=== PATIENT | female | born 2000 | race Hispanic/Latino ===

== ENCOUNTER 2022-02-04 03:31 | Emergency (ER) | payer SELFPAY ==
[2022-02-04 05:33] LABS: Absolute Lymphocytes (CBC) 2.4 K/uL (0.7-4.9); Hematocrit 36.4 % (36.0-45.0); Lymphocytes % 30.9 % (15.3-44.8); MPV 9.2 fL (7.6-11.3); RBC Red Blood Cell Count 4.51 M/uL (3.86-4.86)
[2022-02-04 05:49] LABS: Potassium 3.5 mmol/L (3.5-5.1); Troponin High Sensitivity 7.1 pg/mL (<58.9)
[2022-02-04 06:12] LABS: Urine Blood 3+ (Negative); Urine Glucose Negative (Negative); Urine Protein Negative (Negative); Urine pH 5.5 (5.0-7.0)
--- NOTE | 2022-02-04 08:10 | RAD REPORT ---
EXAM DESCRIPTION: CT - Head Brain Wo Cont - 02/04/2022 7:48 am CLINICAL HISTORY: Syncope COMPARISON: None. TECHNIQUE: Computed axial tomography of the head was obtained. IV contrast was not requested. All CT scans are performed using dose optimization technique as appropriate and may include automated exposure control or mA/KV adjustment according to patient size. FINDINGS: An intracranial bleed is not seen . The ventricles are normal in caliber. No significant hypodense areas within the brain visualized No extra-axial fluid collection is noted. Fluid within the sinuses/ mastoids is not seen. IMPRESSION: No acute intracranial abnormality is seen. If patient's symptoms persist MRI of the bra in would be recommended.
--- NOTE | 2022-02-04 08:16 | RAD REPORT ---
EXAM DESCRIPTION: [place] Single View02/04/2022 6:28 am CLINICAL HISTORY: Syncope COMPARISON: none FINDINGS: The lungs appear clear of acute infiltrate. The heart is normal size IMPRESSION: No acute abnormalities displayed
--- NOTE | 2022-02-04 09:42 | RAD REPORT ---
EXAM DESCRIPTION: CT - Chest For Pe Angio - 02/04/2022 9:36 am CLINICAL HISTORY: Syncope COMPARISON: None. TECHNIQUE: Dynamically enhanced axial 3 mm thick images of the chest were obtained during administra tion of <100> mL Isovue 370 IV contrast. Coronal and oblique reconstruction images were generated and reviewed. Exam utilizes a protocol for optimal evaluation of pulmonary arterial tree. Maximum intensity projections 3D imaging was utilized All CT scans are performed using dose optimization technique as appropriate and may include automated exposure control or mA/KV adjustment according to patient size. FINDINGS: A pulmonary embolus is not seen. A thoracic aortic aneurysm is not noted. A pleural effusion is not seen. A pericardial effusion is not seen. A lung consolidation is not present. IMPRESSION: Negative for a pulmonary embolism.
--- NOTE | 2022-02-04 09:55 | EDPHYS ---
Physician Documentation [facility] Name: Salma Hermosillo Age: 21 yrs Sex: Female : 2000 Arrival Date: 02/04/2022 Time: 03:49 Bed 15 Private MD: ED Physician Artem Phipps HPI: 02/04 04:25 This 21 yrs old Female presents to ER via EMS with complaints of Dizziness. mh7 04:25 The patient presents with dizziness, lightheadedness. Onset: The symptoms/episode mh7 began/occurred today. Context: occurred at home, occurred while the patient was sitting. Modifying factors: The symptoms are alleviated by nothing, the symptoms are aggravated by standing up. Associated signs and symptoms: Pertinent positives: near-syncope, Pertinent negatives: abdominal pain, agitation, ataxia, blurred vision, chest pain, combativeness, confusion, diaphoresis, focal weakness, head injury, headache, nausea, numbness, palpitations, , seizure, shortness of breath, tingling, vomiting. Severity of symptoms: At their worst the symptoms were moderate today, in the emergency department the symptoms have improved markedly. Patient's baseline: Neuro: alert and fully oriented, Motor: no deficits, Ambulation: walks without assistance, Speech: normal. States that she felt dizziness and lightheaded then laid down on her bed and passed out. Denies any other symptoms. She reports having an elective 5 days ago, but has not had any complications. No vaginal bleeding, fever, cough, abdominal pain, nausea, vomiting. She also reports a h/o anemia and was on iron but stopped taking it.. 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 - Social history:: Smoking status: Patient denies any tobacco usage or history of. ROS: 04:25 Constitutional: Negative for fever, chills, and weight loss, Eyes: Negative for injury, mh7 pain, redness, and discharge, ENT: Negative for injury, pain, and discharge, Neck: Negative for injury, pain, and swelling, Cardiovascular: Negative for chest pain, palpitations, and edema, Respiratory: Negative for shortness of breath, cough, wheezing, and pleuritic chest pain, Abdomen/GI: Negative for abdominal pain, nausea, vomiting, diarrhea, and constipation, Back: Negative for injury and pain, : Negative for injury, bleeding, discharge, and swelling, MS/Extremity: Negative for injury and deformity, Skin: Negative for injury, rash, and discoloration, Neuro: Negative for headache, weakness, numbness, tingling, and seizure, Psych: Negative for depression, anxiety, suicide ideation, homicidal ideation, and hallucinations, Allergy/Immunology: Negative for hives, rash, and allergies, Endocrine: Negative for neck swelling, polydipsia, polyuria, polyphagia, and marked weight changes, Hematologic/Lymphatic: Negative for swollen nodes, abnormal bleeding, and unusual bruising. Exam: 04:25 Constitutional: This is a well developed, well nourished patient who is awake, alert, mh7 and in no acute distress. Head/Face: Normocephalic, atraumatic. Eyes: Pupils equal round and reactive to light, extra-ocular motions intact. Lids and lashes normal. Conjunctiva and sclera are non-icteric and not injected. Cornea within normal limits. Periorbital areas with no swelling, redness, or edema. Neck: Trachea midline, no thyromegaly or masses palpated, and no cervical lymphadenopathy. Supple, full range of motion without nuchal rigidity, or vertebral point tenderness. No Meningismus. Chest/axilla: Normal chest wall appearance and motion. Nontender with no deformity. No lesions are appreciated. Cardiovascular: Regular rate and rhythm with a normal S1 and S2. No gallops, murmurs, or rubs. Normal PMI, no JVD. No pulse deficits. Respiratory: Lungs have equal breath sounds bilaterally, clear to auscultation and percussion. No rales, rhonchi or wheezes noted. No increased work of breathing, no retractions or nasal flaring. Abdomen/GI: Soft, non-tender, with normal bowel sounds. No distension or tympany. No guarding or rebound. No evidence of tenderness throughout. Back: No spinal tenderness. No costovertebral tenderness. Full range of motion. Skin: Warm, dry with normal turgor. Normal color with no rashes, no lesions, and no evidence of cellulitis. MS/ Extremity: Pulses equal, no cyanosis. Neurovascular intact. Full, normal range of motion. Neuro: Awake and alert, GCS 15, oriented to person, place, time, and situation. Cranial nerves II-XII grossly intact. Motor strength 5/5 in all extremities. Sensory grossly intact. Cerebellar exam normal. Normal gait. Psych: Awake, alert, with orientation to person, place and time. Behavior, mood, and affect are within normal limits. Vital Signs: 03:49 BP 113 / 71; Pulse 76; Resp 18; Temp 98.1(O); Pulse Ox 100% on R/A; Weight 79.38 kg ll3 (R); Pain 0/10; 05:00 BP 108 / 66; Pulse 67; Resp 16; Pulse Ox 100% on R/A; ll3 06:52 BP 119 / 86; Pulse 66; Resp 17; Pulse Ox 100% on R/A; ll3 08:00 BP 116 / 66 Supine; Pulse 69; Resp 15; ss 08:04 BP 109 / 65 Sitting; Pulse 68; ss 08:06 BP 111 / 73; Pulse 90; Resp 15; ss 10:29 BP 101 / 63; Pulse 60; Resp 15; Pulse Ox 100% on R/A; Pain 0/10; ll1 MDM: 07:25 Transition of care: After a detail discussion of the patient's case, care is mh7 transferred to Artem Phipps MD. 08:29 ED course: Signed out to me by Dr. Hunt, plan was to wait on ct head and d-dimer. He rn thought if negative studies could go home, d-dimer came back elevated, ordered ct PE protocol given recent .. 08:30 Patient medically screened. rn 09:52 Differential diagnosis: generalized weakness, hyperventilation, hypovolemia, idiopathic rn dizziness, near-syncope, syncope. Data reviewed: vital signs, nurses notes, lab test result(s), EKG, radiologic studies, CT scan, plain films, and as a result, I will discharge patient. Counseling: I had a detailed discussion with the patient and/or guardian regarding: the historical points, exam findings, and any diagnostic results supporting the discharge/admit diagnosis, lab results, radiology results, the need for outpatient follow up, to return to the emergency department if symptoms worsen or persist or if there are any questions or concerns that arise at home. Response to treatment: the patient's symptoms have markedly improved after treatment, and as a result, I will discharge patient. Special discussion: I discussed with the patient/guardian in detail that at this point there is no indication for admission to the hospital. It is understood, however, that if the symptoms persist or worsen the patient needs to return immediately for re-evaluation. ED course: Pt feels much better, CT PE and CT head neg for acute findings. Will dc home with return precautions and f/u per Dr. Hunt' original plan.. 02/04 04:04 Order name: Abo/rh Typing; Complete Time: 06:35 [facility] 02/04 04:04 Order name: Basic Metabolic Panel; Complete Time: 06:35 [facility] 02/04 04:04 Order name: CBC with Diff; Complete Time: 05:42 [facility] 02/04 04:54 Order name: D-Dimer; Complete Time: 08:28 [facility] 02/04 04:56 Order name: COVID-19 SARS RT PCR (Document "Date of Onset" if Symptomatic); Complete Time: 06:35 02/04 04:04 Order name: IV Saline Lock; Complete Time: 05:32 02/04 04:54 Order name: EKG; Complete Time: 04:54 02/04 05:29 Order name: Troponin High Sensitivity; Complete Time: 06:35 [facility] 02/04 05:36 Order name: Chest Single View XRAY; Complete Time: 08:28 [facility] 02/04 06:12 Order name: Urine Dipstick-Ancillary; Complete Time: 06:35 [facility] 02/04 07:11 Order name: CT Head Brain wo Cont; Complete Time: 08:28 02/04 08:29 Order name: CT Chest For PE Angio; Complete Time: 09:52 rn 02/04 04:04 Order name: Labs collected and sent; Complete Time: 05:32 02/04 04:04 Order name: NPO; Complete Time: 04:23 7 02/04 04:04 Order name: Urine Dipstick-Ancillary (obtain specimen); Complete Time: 06:13 02/04 04:54 Order name: EKG - Nurse/Tech; Complete Time: 06:29 mh7 02/04 05:36 Order name: Orthostatics; Complete Time: 08:30 mh7 Administered Medications: No medications were administered Disposition Summary: 02/04/22 09:54 Discharge Ordered Location: Home rn Problem: new rn Symptoms: have improved rn Condition: Stable rn Diagnosis - Syncope rn Followup: rn - With: Private Physician - When: As needed - Reason: Recheck today's complaints, Re-evaluation by your physician Discharge Instructions: - Discharge Summary Sheet rn - Syncope rn Forms: - Medication Reconciliation Form rn - Thank You Letter rn - Antibiotic rn chronic - Prescription Opioid Use rn Signatures: Dispatcher [employer] EDMS Artem Phipps MD MD rn Holmes, Maurice, MD MD [facility] Brittany Kenny RN RN ll3 Corrections: (The following items were deleted from the chart) 05:28 04:54 Troponin High Sensitivity+C.LAB.BRZ ordered. EDMS EDMS
--- NOTE | 2022-02-04 09:55 | ER ---
Nurse's Notes [facility] Name: Salma Hermosillo Age: 21 yrs Sex: Female : 2000 Arrival Date: 02/04/2022 Time: 03:49 Bed 15 Private MD: Diagnosis: Syncope Presentation: 02/04 03:49 Chief complaint: EMS states: Toned out for 2 episodes of syncope, pt states she had an ll3 procedure on Friday, states have been bleeding a lot since then, denies any pain at this time. Coronavirus screen: Vaccine status: Patient reports being unvaccinated. At this time, the client does not indicate any symptoms associated with coronavirus-19. Ebola Screen: No symptoms or risks identified at this time. Initial Sepsis Screen: Does the patient meet any 2 criteria? No. Patient's initial sepsis screen is negative. Does the patient have a suspected source of infection? No. Patient's initial sepsis screen is negative. Risk Assessment: Do you want to hurt yourself or someone else? Patient reports no desire to harm self or others. Onset of symptoms was February 04, 2022. Care prior to arrival: None. 03:49 Method Of Arrival: EMS: [facility] ll3 03:49 Acuity: PRAKASH 3 ll3 Triage Assessment: 03:52 General: Appears in no apparent distress. comfortable, Behavior is calm, cooperative. ll3 Pain: Denies pain. Neuro: Level of Consciousness is awake, alert, obeys commands, Oriented to person, place, time, situation, Reports a syncopal episode weakness since This morning. Respiratory: Respiratory effort is even, unlabored, Respiratory pattern is regular, symmetrical. Derm: Skin is pale. 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 - Social history:: Smoking status: Patient denies any tobacco usage or history of. Screenin:55 Abuse screen: Denies threats or abuse. Nutritional screening: No deficits noted. ll3 Tuberculosis screening: No symptoms or risk factors identified. 06:52 Fall Risk No fall in past 12 months (0 pts). No secondary diagnosis (0 pts). IV access ll3 (20 points). Ambulatory Aid- None/Bed Rest/Nurse Assist (0 pts). Gait- Normal/Bed Rest/Wheelchair (0 pts) Mental Status- Oriented to own ability (0 pts). Total Bucio Fall Scale indicates No Risk (0-24 pts). Assessment: 03:55 General: See triage assessment. ll3 06:18 Reassessment: No changes from previously documented assessment. Patient and/or family ll3 updated on plan of care and expected duration. Pain level reassessed. Patient is alert, oriented x 3, equal unlabored respirations, skin warm/dry/pink. 07:00 Reassessment: No changes from previously documented assessment. Patient and/or family ss updated on plan of care and expected duration. Pain level reassessed. Patient is alert, oriented x 3, equal unlabored respirations, skin warm/dry/pink. report received from police shift commander RN. 08:00 Reassessment: Patient appears in no apparent distress at this time. No changes from ll1 previously documented assessment. Patient and/or family updated on plan of care and expected duration. Pain level reassessed. Patient is alert, oriented x 3, equal unlabored respirations, skin warm/dry/pink. 09:00 Reassessment: No changes from previously documented assessment. Patient and/or family ll1 updated on plan of care and expected duration. Pain level reassessed. Patient is alert, oriented x 3, equal unlabored respirations, skin warm/dry/pink. 10:00 Reassessment: No changes from previously documented assessment. Patient and/or family ll1 updated on plan of care and expected duration. Pain level reassessed. Patient is alert, oriented x 3, equal unlabored respirations, skin warm/dry/pink. Vital Signs: 03:49 BP 113 / 71; Pulse 76; Resp 18; Temp 98.1(O); Pulse Ox 100% on R/A; Weight 79.38 kg ll3 (R); Pain 0/10; 05:00 BP 108 / 66; Pulse 67; Resp 16; Pulse Ox 100% on R/A; ll3 06:52 BP 119 / 86; Pulse 66; Resp 17; Pulse Ox 100% on R/A; ll3 08:00 BP 116 / 66 Supine; Pulse 69; Resp 15; ss 08:04 BP 109 / 65 Sitting; Pulse 68; ss 08:06 BP 111 / 73; Pulse 90; Resp 15; ss 10:29 BP 101 / 63; Pulse 60; Resp 15; Pulse Ox 100% on R/A; Pain 0/10; ll1 ED Course: 03:49 Patient arrived in ED. ll3 03:52 Triage completed. ll3 03:52 Arm band placed on Patient placed in an exam room, on a stretcher, in view of staff ll3 members, on pulse oximetry. 03:55 Patient has correct armband on for positive identification. Bed in low position. Call ll3 light in reach. Side rails up X 1. 03:59 Saurav Hunt MD is Attending Physician. 7 05:29 Brittany Kenny RN is Primary Nurse. ll3 06:29 EKG done, by ED staff, reviewed by Saurav Hunt MD. mh5 06:30 Chest Single View XRAY In Process Unspecified. EDMS 06:30 Warm blanket given. engine monitor on. Pulse ox on. NIBP on. mh5 07:00 Maintain EMS IV. Dressing intact. Good blood return noted. Gauge \T\ site: 22 L AC. IV is ll1 patent, Flushed left antecubital with 5 ml normal saline. 07:49 CT Head Brain wo Cont In Process Unspecified. EDMS 08:30 Attending Physician role handed off by Saurav Hunt MD rn 08:30 Artem Phipps MD is Attending Physician. rn 09:38 CT Chest For PE Angio In Process Unspecified. EDMS 10:29 No provider procedures requiring assistance completed. IV discontinued, intact, ll1 bleeding controlled, No redness/swelling at site. Pressure dressing applied. Administered Medications: No medications were administered Medication: 06:52 VIS not applicable for this client. ll3 Outcome: 09:54 Discharge ordered by . rn 10:30 Discharged to home ambulatory. ll1 10:30 Condition: stable 10:30 Discharge instructions given to patient, Instructed on discharge instructions, follow up and referral plans. Demonstrated understanding of instructions, follow-up care. 10:30 Patient left the ED. ll1 Signatures: Dispatcher [employer] EDMS PhippsArtem plasencia MD MD rn Smirch, Shelby, RN RN ss Martinez, [facility] Tigre Mitchell RN RN ll1 Saurav Hunt MD MD 7 Brittany Kenny RN RN ll3 Corrections: (The following items were deleted from the chart) 06:52 06:18 BP 108 / 66; Pulse 67bpm; Resp 16bpm; Pulse Ox 100% RA; ll3 ll3 08:28 07:00 Reassessment: No changes from previously documented assessment. Patient and/or ss family updated on plan of care and expected duration. Pain level reassessed. Patient is alert, oriented x 3, equal unlabored respirations, skin warm/dry/pink. ll1
[2022-02-04 10:54] VITALS: TEMP 98.1; O2SAT 100
[2022-02-04 11:15] VITALS: BP 101/63
--- NOTE | 2022-02-04 13:31 | EKG ---
Test Date: 2022-02-04 Test Time: 06:46:04 [employer]: AIRAM MEASUREMENT RESULTS: Intervals: Rate: 66 W[place]: 150 QRSD: 86 QT: 450 QTc: 471 [place]: P: 19 W[place]: 150 QRS: 77 T: 55 INTERPRETIVE STATEMENTS: Normal sinus rhythm T wave abnormality, consider anterior ischemia Abnormal ECG No previous ECG available for comparison Electronically Signed On 02-04-22 13:31:16 CDT by Petey Orlando
== END 2022-02-04 10:30 | disposition home or self-care (01) ==
LOC: ER 03:31
DX: R55 Syncope and collapse (principal); Z88.0 Allergy status to penicillin; Z20.822 Contact with and (suspected) exposure to COVID-19
CPT/HCPCS: 36415; 70450; 71045; 71275; 80048; 81003; 84484; 85025; 85379; 86900; 86901; 93005; 99284; Q9967; U0003